=== PATIENT | female | born 1940 | race Caucasian/White ===

== ENCOUNTER → 2022-11-23 | Outpatient (CLI) | payer OTHER, MEDICARE ==
[~2022-11-23] MED LIST: APIX5TAB PO; BENZ-226 PO; CETI10TA57 PO; DOCU100C33 PO; FERS325 PO; PANT40TA54 PO; ROPI1TAB46 PO; SIMV40TA59 PO; potassium PO
[2022-11-23 12:26] LABS: HEMOGLOBIN A1C 5.5 % (4.0-6.0)
[2022-11-23 13:10] LABS: ALBUMIN 3.5 g/dL (3.5-5.0); ASPARTATE AMINOTRANSFERASE 25 U/L (10-37); BILIRUBIN,TOTAL 0.7 mg/dL (0.2-1.0); CARBON DIOXIDE 34 mmol/L (21-32); CHLORIDE 100 mmol/L (101-111); CHOLESTEROL 148 mg/dL (<200); CREATININE 1.2 mg/dL (0.5-1.5); GLOMERULAR FILTR. RATE CALC 45 mL/min (>90); GLUCOSE,RANDOM 104 mg/dL (70-105); HDL CHOLESTEROL 62 mg/dL (35-85); LDL DIRECT 70 mg/dL (0-99); POTASSIUM 3.8 mmol/L (3.5-5.1); SODIUM SERUM 142 mmol/L (136-145); T3 UPTAKE 34 % (38-49); T4 (THYROXINE) 8.4 ug/dL (4.7-13.3); THYROID STIMULATING HORMONE 2.28 uIU/mL (0.36-3.74); TOTAL PROTEIN, SERUM 7.5 g/dL (6.0-8.3); TRIGLYCERIDES 115 mg/dL (30-200); UREA NITROGEN, BLOOD 26 mg/dL (7-18)
[2022-11-23 13:17] LABS: ALANINE AMINOTRANSFERASE < 6 U/L (12-78)
== END | disposition home or self-care (01) ==
LOC: LAB 09:25
PROVIDERS: ATTEND Internal Medicine Cardiovascular Disease
DX: I48.0 Paroxysmal atrial fibrillation (principal); I10 Essential (primary) hypertension; Z79.899 Other long term (current) drug therapy
CPT/HCPCS: 36415; 80053; 80061; 83036; 83735; 83880; 84436; 84443; 84479

== ENCOUNTER → 2022-12-25 | Outpatient (CLI) | payer OTHER, MEDICARE | END | disposition home or self-care (01) | LOC: SHCH 08:32 | PROVIDERS: ATTEND Internal Medicine Cardiovascular Disease | DX: I08.8 Other rheumatic multiple valve diseases (principal); I27.20 Pulmonary hypertension, unspecified; I11.9 Hypertensive heart disease without heart failure | CPT/HCPCS: 93306 ==

== ENCOUNTER → 2023-03-20 | Outpatient (CLI) | payer OTHER, MEDICARE ==
[2023-03-20 12:43] LABS: ALBUMIN 3.4 g/dL (3.5-5.0); BILIRUBIN,TOTAL 0.6 mg/dL (0.2-1.0); CREATININE 0.9 mg/dL (0.5-1.5); MAGNESIUM 2.1 mg/dL (1.80-2.40); POTASSIUM 4.4 mmol/L (3.5-5.1); TOTAL PROTEIN, SERUM 6.8 g/dL (6.0-8.3)
== END | disposition home or self-care (01) ==
LOC: LAB 09:21
PROVIDERS: ATTEND Internal Medicine Cardiovascular Disease
DX: I65.23 Occlusion and stenosis of bilateral carotid arteries (principal); I10 Essential (primary) hypertension
CPT/HCPCS: 36415; 80053; 83735; 83880

== ENCOUNTER → 2023-09-11 | Outpatient (CLI) | payer OTHER, MEDICARE | END | disposition home or self-care (01) | LOC: SHCH 08:14 | PROVIDERS: ATTEND Internal Medicine Cardiovascular Disease | DX: I08.8 Other rheumatic multiple valve diseases (principal); I11.9 Hypertensive heart disease without heart failure; R01.1 Cardiac murmur, unspecified | CPT/HCPCS: 93306; 93356 ==